=== PATIENT | female | born 1995 | race Hispanic/Latino ===

== ENCOUNTER 2019-01-05 20:08 | Inpatient (IN) ==
[2019-01-05 20:56] LABS: BASO# 0.02 X1000 (0.0-0.2); BASO% 0.2 % (0.0-0.8); EOS# 0.03 X1000 (0.0-0.7); EOS% 0.3 % (0.0-10.0); HEMATOCRIT 31.2 % (37.0-47.0); HEMOGLOBIN 9.4 g/dL (12.0-16.0); IMM GRAN# 0.03 X1000 (0.0-0.04); IMM GRAN% 0.3 % (0.0-0.5); LYMPH# 1.09 X1000 (1.2-3.4); LYMPH% 12.4 % (20.5-51.1); MCH 22.6 PG (27-31); MCHC 30.1 g/dL (33-37); MONO# 0.21 X1000 (0.11-0.59); MONO% 2.4 % (1.7-9.3); MPV 10.5 FL (7.4-10.4); NEUT# 7.43 X1000 (1.4-6.5); NEUT% 84.4 % (42.2-75.2); PLT 300 X1000 (130-400); RBC 4.16 XMIL (4.2-5.4); WBC 8.81 X1000 (4.8-10.8)
--- NOTE | 2019-01-05 21:02 | PROVIDER DOCUMENTATION ---
This chart was entered by Aisha Lyman Scribe, acting as scribe for Jass Reyes MD. HPI-Female /OB/Breast <Deedee Huff - Last Filed: 01/05/19 23:45> - General Source: reports: patient - History of Present Illness-Female /OB Does patient report she is ?: Yes Location of complaint: reports: RLQ, LLQ, periumbilical, suprapubic Quality of Pain: reports: cramping Severity in ED: reports: moderate Onset/Duration: reports: this morning Timing: reports: still present, intermittent Context/Activities at Onset: reports: light activity Vaginal Symptoms: reports: abnormal bleeding Vaginal Bleeding Amount: Spotting Urinary Symptoms: reports: no symptoms Related Symptoms: reports: pelvic pain, vaginal bleeding Modifying Factors: worse with: movement, palpation Associated Symptoms: reports: nausea Similar Symptoms Previously?: No Recently seen or treated by another doctor?: No - LMP/ History Menstrual Status: currently LMP: 12/19/18 : 1 Para: 0 : 0 Prior Delivery: N/A HCG confirmation: home preg test Care: none <Jass Reyes - Last Filed: 01/06/19 07:30> - General Chief Complaint: [employer] Related Stated Complaint: , PAIN AND BLEEDING Time Seen by Provider: 01/05/19 20:44 Allergies/Adverse Reactions: Patient Allergies Allergy/AdvReac Type Severity Reaction Status Date / Time No Known Allergies Allergy Verified 01/05/19 20:47 Home Medications: Home Medication List Medication Instructions Recorded Confirmed Last Taken Type NK [No Home Medications] 01/05/19 01/05/19 Unknown History - History of Present Illness-Female /OB Nature of Presenting Problem: 23yof presents to ED cc abdominal cramping, vaginal spotting w/clots SOB and nausea since this morning that is getting worse. Pt reports she is ,G-1, based on a home test taken 3 days ago and with LMP 12/19/18. Pt reports she has not seen an OB yet. Pt denies F/CP/V/D/dysuria. (Jass Reyes) Review of Systems - Adult - REVIEW OF SYSTEMS - ADULT Constitutional: reports: see HPI. denies: chills, fever, fatique Eyes: reports: no symptoms reported Ears, Nose, Mouth & Throat: reports: no symptoms reported Cardiovascular: reports: see HPI. denies: chest pain, palpitations Respiratory: reports: see HPI, shortness of breath. denies: wheezing Gastrointestinal: reports: see HPI, abdominal pain, nausea. denies: diarrhea, vomiting Genitourinary: reports: see HPI, other (vaginal spotting w/clots). denies: dysuria, frequency Musculoskeletal: reports: no symptoms reported Integumentary: reports: no symptoms reported Neurological: reports: no symptoms reported Psychiatric: reports: no symptoms reported Endocrine: reports: no symptoms reported Hematologic/Lymphatic: reports: no symptoms reported Allergic/Immunologic: reports: no symptoms reported All Other Systems: Reviewed and Negative <Jass Reyes - Last Filed: 01/06/19 07:30> Past History - Adult - PAST MEDICAL HISTORY-ADULT Review of Records: reports: Old Records Reviewed, Nursing Assessment Review, Medications Reviewed, Social history reviewed & non-contributory. Major Childhood Illnesses: reports: denies history Cardiovascular: reports: denies history Respiratory: reports: denies history Gastrointestinal: reports: denies history Obstetrical/Gynecological: reports: denies history Genitourinary: reports: denies history Musculoskeletal: reports: denies history Neurological: reports: denies history Psychiatric: reports: other (Panic attacks) Endocrine/Immune: reports: denies history Other Conditions: reports: denies history - IMMUNIZATION STATUS Childhood Immunizations: See Nurse Assessment Flu Vaccine: See Nurse Assessment - FAMILY HISTORY Family History: reviewed, not pertinent - SOCIAL HISTORY Smoking: denies <Jass Reyes - Last Filed: 01/06/19 07:30> Physical Exam-General - PHYSICAL EXAM-ADULT Initial Vital Signs Reviewed: Yes - CONSTITUTIONAL General Appearance: appears well, alert, mild distress. negative: anxious, combative - EYES Eyes: PERRL/EOMI, pink conjunctivae. negative: photophobia - HEAD, EARS, NOSE, MOUTH & THROAT HENMT: normocephalic/atraumatic, moist mucous membranes. negative: angioedema - RESPIRATORY Respiratory: chest non-tender, lungs clear, normal breath sounds. negative: rhonchi, stridor, wheezing - CARDIOVASCULAR Cardiovascular: normal peripheral pulses, regular rate, rhythm, no edema. negative: bradycardia, tachycardia - GASTROINTESTINAL (ABDOMEN) Abdominal Exam: normal bowel sounds, soft, distended, tenderness (generalized especially both upper quadrants and suprapubic). negative: guarding, rebound - GENITOURINARY Female Genitalia/Pelvic Exam: other (sterile glove exam 2214: fully dilated cervix with head engaged, OB sound effects person Dr. Valencia notified, delivered viable male infant at 2246, Apgars of 8/9, oropharynx and nose suctioned, Dr. Valencia arrived at 2245, and assumed care of patient at 2248.) - MUSCULOSKELETAL Back Exam: normal inspection, no CVA tenderness, no vertebral tenderness Extremity: normal range of motion, normal inspection, pelvis stable. negative: deformity - SKIN Integumentary: normal color. negative: diaphoresis, jaundice, rash - PSYCHIATRIC Psych/Mental Status: normal mood/affect, oriented x 3. negative: anxious, disheveled <Jass Reyes - Last Filed: 01/06/19 07:30> Progress - PLAN OF CARE/RESULTS Result Diagrams: 01/05/19 20:41 01/05/19 20:41 <Deedee Huff - Last Filed: 01/05/19 23:45> - PLAN OF CARE/RESULTS Result Diagrams: 01/05/19 20:41 01/06/19 01:19 - CONSULTS/PCP/HOSPITALIST Notification #1 *Consult/PCP/Hospitalist*: Dr. Valencia Time Discussed: 22:25 <Jass Reyes - Last Filed: 01/06/19 07:30> - PLAN OF CARE/RESULTS Progress/Plan/Lab Results: Laboratory Results - last 24 hr 01/05/19 01/05/19 01/05/19 20:41 20:41 20:41 WBC 8.81 RBC 4.16 L Hgb 9.4 L Hct 31.2 L MCV 75.0 L MCH 22.6 L MCHC 30.1 L RDW Std Deviation 17.0 H Plt Count 300 MPV 10.5 H Immature Gran % (Auto) 0.3 Neut % (Auto) 84.4 H Lymph % (Auto) 12.4 L [place] % (Auto) 2.4 Eos % (Auto) 0.3 Baso % (Auto) 0.2 Immature Gran # (Auto) 0.03 Neut # (Auto) 7.43 H Lymph # (Auto) 1.09 L [place] # (Auto) 0.21 Eos # (Auto) 0.03 Baso # (Auto) 0.02 Sodium Potassium Chloride Carbon Dioxide Anion Gap BUN Creatinine Estimated GFR/1.73 m2 BUN/Creatinine Ratio Glucose Calculated Osmolality Calcium Total Bilirubin AST ALT Alkaline Phosphatase Total Protein Albumin Globulin Albumin/Globulin Ratio Ser , Semi-Qnt 2876.0 RPR Blood Type O POSITIVE Direct Antiglob Test Baby's Blood Type 01/05/19 01/05/19 01/05/19 20:41 22:55 22:55 WBC RBC Hgb Hct MCV MCH MCHC RDW Std Deviation Plt Count MPV Immature Gran % (Auto) Neut % (Auto) Lymph % (Auto) [place] % (Auto) Eos % (Auto) Baso % (Auto) Immature Gran # (Auto) Neut # (Auto) Lymph # (Auto) [place] # (Auto) Eos # (Auto) Baso # (Auto) Sodium 138 Potassium 3.6 Chloride 101 Carbon Dioxide 24 L Anion Gap 13 BUN 8 Creatinine 0.8 Estimated GFR/1.73 m2 > 60 BUN/Creatinine Ratio 10 Glucose 91 Calculated Osmolality 274 Calcium 8.7 L Total Bilirubin 0.24 AST 17 ALT 7 L Alkaline Phosphatase 218 H Total Protein 7.4 Albumin 3.6 Globulin 3.8 Albumin/Globulin Ratio 0.9 Ser , Semi-Qnt RPR NON-REACTIVE Blood Type Direct Antiglob Test NEGATIVE Baby's Blood Type O POSITIVE Orders Category Date Time Status US OBS COMPLETE > 14 WKS [US] Stat Exams 01/05/19 20:31 Taken ABORH [BBK] Stat Lab 01/05/19 20:41 Completed CBC WITH ELECTRONIC DIFF [HEME] Stat Lab 01/05/19 20:41 Completed CMP [COMPREHENSIVE METABOLIC PANEL] [CHEM] Stat Lab 01/05/19 20:41 Completed CORD BLOOD [BBK] Stat Lab 01/05/19 22:55 Completed QUANT TEST Stat Lab 01/05/19 20:41 Completed RPR [SERO] Stat Lab 01/05/19 22:55 Completed Oxytocin [Pitocin] Med 01/05/19 22:51 Active 10 unit IM DIRECTED Oxytocin [Pitocin] Med 01/05/19 22:45 Discontinued 20 unit IM DIRECTED ONE Departure <Deedee Huff - Last Filed: 01/05/19 23:45> - Departure Date of Disposition Decision: 01/06/19 Time of Disposition Decision: 00:40 Certified Medical Emergency: Emergent - Critical Care Note This patient required my direct & personal management of CC.: No <Jass Reyes - Last Filed: 01/06/19 07:30> - Departure DIAGNOSIS: Pain during labor Disposition: ADMITTED INPATIENT 09 Condition: Stable Attestation - Physician/ JOHNNY Attestation Patient care was provided by Advanced Practice Provider:: No The physician spent face to face time with patient:: Yes Advanced Practice Provider documentation review:: Supervising physician onsite and consulted in the evaluation and care of this patient. The physician did have a face to face encounter with the patient. <Jass Reyes - Last Filed: 01/06/19 07:30> Note <Deedee Huff - Last Filed: 01/05/19 23:45> performed delivery with Dr. Reyes. (Deedee Huff) This chart was documented by the indicated scribe, (Aisha Lyman Scribe) and accurately reflects the services I performed and decisions made by me, Jass Reyes MD, as attested by the provider's signature.
[2019-01-05 21:23] LABS: AGAP 13; ALB/GLOB RATIO 0.9; ALBUMIN 3.6 g/dL (3.5-5.0); ALKALINE PHOSPHATASE 218 U/L (32-104); BUN 8 mg/dL (8-22); CALCIUM 8.7 mg/dL (8.8-10.2); CHLORIDE 101 mmol/L (98-107); COSMO 274; CREATININE 0.8 mg/dL (0.5-0.9); ESTIMATED GFR > 60; GLUCOSE 91 mg/dL (70-104); GOT 17 U/L (10-30); GPT 7 U/L (10-36); POTASSIUM 3.6 mmol/L (3.5-5.1); SODIUM 138 mmol/L (136-145); TCO2 24 mmol/L (25-35); TOTAL BILIRUBIN 0.24 mg/dL (0.20-1.00); TOTAL PROTEIN 7.4 g/dL (6.3-8.3)
[2019-01-05] MEDS ORDERED: PITOCIN IM ONE (22:45)
[2019-01-05] MEDS ORDERED: PITOCIN IM SCH (22:51)
--- NOTE | 2019-01-05 23:51 | HISTORY AND PHYSICAL ---
CHIEF COMPLAINT: Abdominal pain. HISTORY OF PRESENT ILLNESS: A 23-year-old, G1, at approximately 36 weeks, presented to the emergency room with a complaint of regular abdominal pain and vaginal bleeding. The patient did not know she was until approximately two weeks ago. Obstetric ultrasound on admission dated her at approximately 36 weeks. The ER physician examined the patient and noted her to be 8 cm dilated, and she subsequently delivered a viable male infant in the emergency department. She has had no care this . OBSTETRIC HISTORY: 1 with no care. GYNECOLOGIC HISTORY: She states her last Pap smear was in 2018, and that was normal. She denies any history of abnormal Pap smears. She denies any history of sexually transmitted infections. She has had irregular bleeding over the past six months, which she attributed to her control pills. She discontinued the control pills a few months ago due to mood side effects. PAST MEDICAL HISTORY: Denies. MEDICATIONS: Keke-Rhodelia p.r.n. heartburn. ALLERGIES: No known drug allergies. SURGICAL HISTORY: [place] teeth removed. SOCIAL HISTORY: She denies tobacco, alcohol, or drug use. FAMILY HISTORY: Mother with anemia. VITAL SIGNS: Temperature 97.9 degrees, heart rate 84, blood pressure 117/79, respiratory rate 15, oxygen saturation 100% on room air. LABORATORY DATA: White blood cell count 8.8, hemoglobin 9.4, hematocrit 31.2, platelets 300,000. Blood type O positive. PHYSICAL EXAMINATION: GENERAL: Alert, in mild distress secondary to pain. HEART: Regular rate and rhythm. LUNGS: Clear to auscultation bilaterally. ABDOMEN: Soft, gravid, tender to palpation. CERVICAL EXAM: Per ER physician, 8 cm dilated prior to delivery. EXTREMITIES: No clubbing, cyanosis, or edema. ASSESSMENT AND PLAN: A 23-year-old, 1, at approximately 36 weeks gestation, status post spontaneous vaginal delivery of infant and placenta with no care. 1. Hemodynamically stable. Normal lochia. 2. Will transfer patient to [facility] for and infant care. 3. Will obtain labs. 4. Cord gases obtained at delivery, cord blood also obtained at delivery. 5. Social Service consult due to no care.
--- NOTE | 2019-01-06 00:01 | OPERATIVE NOTE ---
PROCEDURE DATE: 01/05/2019 DATE OF DELIVERY: 01/05/2019. DELIVERY NOTE: Patient is a 23-year-old, G1, at approximately 36 weeks gestation with no care, who presented to the emergency room complaining of regular abdominal pain. Cervical exam per ER physician was 8 cm dilated. Approximately 10 minutes later, she delivered a viable vigorous male with Apgars 8/9, weight of 6 pounds 1 ounce. Labor was spontaneous and started around 11 p.m. today. delivered in occiput anterior position with maternal pushing efforts. Head, shoulders, and body delivered without difficulty. The cord was clamped and cut, and cord gases and cord blood were obtained. The placenta delivered spontaneously and intact with a 3-vessel cord. Placenta will be sent to Pathology. A small right periurethral laceration was noted, but was hemostatic and did not require repair. She received 10 units of IM Pitocin after delivery of the placenta and bleeding was stable. ANESTHESIA: None. ESTIMATED BLOOD LOSS: 200 mL. DISPOSITION: Pediatric nurse in attendance. Mother stable. Will transfer to [facility] for care and care. MTDD
[2019-01-06] MEDS ORDERED: PERI MEDS (DERMOPLAST/NUPERCAINAL/TUCKS) MISC PRN (00:19)
[2019-01-06] MEDS ORDERED: ATARAX PO PRN (00:19)
[2019-01-06] MEDS ORDERED: HYDROXYZINE IM PRN (00:19)
[2019-01-06] MEDS ORDERED: PERCOCET-5 PO PRN (00:19)
[2019-01-06] MEDS ORDERED: BENADRYL IV PRN (00:19)
[2019-01-06] MEDS ORDERED: AMBIEN PO PRN (00:19)
[2019-01-06] MEDS ORDERED: BOOSTRIX VACCINE IM ONE (00:19)
[2019-01-06] MEDS ORDERED: M-M-R II VACCINE SUBQ ONE (00:19)
[2019-01-06] MEDS ORDERED: CYTOTEC PO PRN (00:19)
[2019-01-06] MEDS ORDERED: BENADRYL PO PRN (00:19)
[2019-01-06] MEDS ORDERED: PITOCIN 20 UNITS/NS 20 UNITS/1,000 ML IV.SOLN IV SCH (00:30)
[2019-01-06] MEDS: MOTRIN PO PRN ×3 (01:13→18:15)
[2019-01-06 02:25] LABS: RAPID HIV PRESUMPTIVE NEGATIVE; RPR NON-REACTIVE (NONREACTIVE)
[2019-01-06 07:09] LABS: UR AMPHETAMINES QUAL NONE DETECTED (NONE DETECT); UR BARBITUATES QUAL NONE DETECTED (NONE DETECT); UR BENZODIAZEPIN QUAL NONE DETECTED (NONE DETECT); UR CANNABINOIDS QUAL NONE DETECTED (NONE DETECT); UR COCAINE QUAL NONE DETECTED (NONE DETECT); UR METHADONE QUAL NONE DETECTED (NONE DETECT); UR METHAMPHETAMINE QUAL NONE DETECTED (NONE DETECT); UR OPIATES QUAL NONE DETECTED (NONE DETECT); UR OXYCODONE QUAL NONE DETECTED (NONE DETECT); UR PCP QUAL NONE DETECTED (NONE DETECT); UR PROPOXYPHENE QUAL NONE DETECTED (NONE DETECT); UR TCA QUAL NONE DETECTED (NONE DETECT)
--- NOTE | 2019-01-06 07:50 | Diag Imaging Result Doc PS360 ---
EXAM: US OBS COMPLETE > 14 WKS INDICATION: vaginal bleeding TECHNIQUE: COMPARISON: None. FINDINGS: The study is somewhat limited due to advanced gestational age and the patient being in active labor. There is a single viable intrauterine gestation. The fetus is in vertex position. The cervix is not well-visualized. No gross anomalies are appreciated on this limited study. EFW-6 lbs. 7 oz. +/- 20 ounces FHR-160 bpm GA by ultrasound-35 weeks 5 days +/- 18 days IMPRESSION: Single viable intrauterine gestation with no gross anomalies on this somewhat limited study. Electronically signed by Chandrakant Rendon 01/06/2019 7:47 AM
--- NOTE | 2019-01-06 07:50 | OB/GYN PROGRESS NOTE ---
Progress Note OB - . Patient Problems: Current Active Problems Problem Status Onset Pain during labor Acute OB Progress Note: Vital Signs - 24 hr 01/05/19 20:19 01/05/19 23:29 01/06/19 00:24 Temperature 97.9 F 98.6 F 98.0 F Pulse Rate 84 75 56 L Respiratory Rate 15 19 18 Blood Pressure 117/79 108/72 101/62 O2 Sat by Pulse Oximetry 100 100 99 Laboratory Results - last 24 hr 01/05/19 01/05/19 01/05/19 20:41 20:41 20:41 WBC 8.81 RBC 4.16 L Hgb 9.4 L Hct 31.2 L MCV 75.0 L MCH 22.6 L MCHC 30.1 L RDW Std Deviation 17.0 H Plt Count 300 MPV 10.5 H Immature Gran % (Auto) 0.3 Neut % (Auto) 84.4 H Lymph % (Auto) 12.4 L [place] % (Auto) 2.4 Eos % (Auto) 0.3 Baso % (Auto) 0.2 Immature Gran # (Auto) 0.03 Neut # (Auto) 7.43 H Lymph # (Auto) 1.09 L [place] # (Auto) 0.21 Eos # (Auto) 0.03 Baso # (Auto) 0.02 Sodium Potassium Chloride Carbon Dioxide Anion Gap BUN Creatinine Estimated GFR/1.73 m2 BUN/Creatinine Ratio Glucose Calculated Osmolality Calcium Total Bilirubin AST ALT Alkaline Phosphatase Total Protein Albumin Globulin Albumin/Globulin Ratio Ser , Semi-Qnt 2876.0 Urine Opiates Screen Ur Oxycodone Screen Urine Methadone Screen U Propoxyphene Qual Ur Barbituates Screen Ur Tricyclics Screen Ur Phencyclidine Scrn Ur Amphetamines Screen U Methamphetamines Scrn U Benzodiazepines Scrn Urine Cocaine Screen U Cannabinoids Screen RPR HIV 1&2 Antibody Rapid Blood Type O POSITIVE Direct Antiglob Test Baby's Blood Type 01/05/19 01/05/19 01/05/19 20:41 22:55 22:55 WBC RBC Hgb Hct MCV MCH MCHC RDW Std Deviation Plt Count MPV Immature Gran % (Auto) Neut % (Auto) Lymph % (Auto) [place] % (Auto) Eos % (Auto) Baso % (Auto) Immature Gran # (Auto) Neut # (Auto) Lymph # (Auto) [place] # (Auto) Eos # (Auto) Baso # (Auto) Sodium 138 Potassium 3.6 Chloride 101 Carbon Dioxide 24 L Anion Gap 13 BUN 8 Creatinine 0.8 Estimated GFR/1.73 m2 > 60 BUN/Creatinine Ratio 10 Glucose 91 Calculated Osmolality 274 Calcium 8.7 L Total Bilirubin 0.24 AST 17 ALT 7 L Alkaline Phosphatase 218 H Total Protein 7.4 Albumin 3.6 Globulin 3.8 Albumin/Globulin Ratio 0.9 Ser , Semi-Qnt Urine Opiates Screen Ur Oxycodone Screen Urine Methadone Screen U Propoxyphene Qual Ur Barbituates Screen Ur Tricyclics Screen Ur Phencyclidine Scrn Ur Amphetamines Screen U Methamphetamines Scrn U Benzodiazepines Scrn Urine Cocaine Screen U Cannabinoids Screen RPR NON-REACTIVE HIV 1&2 Antibody Rapid Blood Type Direct Antiglob Test NEGATIVE Baby's Blood Type O POSITIVE 01/06/19 01/06/19 01/06/19 01:19 01:19 06:10 WBC RBC Hgb Hct MCV MCH MCHC RDW Std Deviation Plt Count MPV Immature Gran % (Auto) Neut % (Auto) Lymph % (Auto) [place] % (Auto) Eos % (Auto) Baso % (Auto) Immature Gran # (Auto) Neut # (Auto) Lymph # (Auto) [place] # (Auto) Eos # (Auto) Baso # (Auto) Sodium Potassium Chloride Carbon Dioxide Anion Gap BUN Creatinine Estimated GFR/1.73 m2 BUN/Creatinine Ratio Glucose 136 H Calculated Osmolality Calcium Total Bilirubin AST ALT Alkaline Phosphatase Total Protein Albumin Globulin Albumin/Globulin Ratio Ser , Semi-Qnt Urine Opiates Screen NONE DETECTED Ur Oxycodone Screen NONE DETECTED Urine Methadone Screen NONE DETECTED U Propoxyphene Qual NONE DETECTED Ur Barbituates Screen NONE DETECTED Ur Tricyclics Screen NONE DETECTED Ur Phencyclidine Scrn NONE DETECTED Ur Amphetamines Screen NONE DETECTED U Methamphetamines Scrn NONE DETECTED U Benzodiazepines Scrn NONE DETECTED Urine Cocaine Screen NONE DETECTED U Cannabinoids Screen NONE DETECTED RPR NON-REACTIVE HIV 1&2 Antibody Rapid PRESUMPTIVE NEGATIVE Blood Type Direct Antiglob Test Baby's Blood Type ppd1 no complaints vssaf s/nt -cce bottle hgb P ambulating, davis reg, voiding home in am
[2019-01-06 08:21] LABS: BASO# 0.01 X1000 (0.0-0.2); BASO% 0.1 % (0.0-0.8); EOS# 0.01 X1000 (0.0-0.7); EOS% 0.1 % (0.0-10.0); HEMATOCRIT 25.4 % (37.0-47.0); HEMOGLOBIN 7.7 g/dL (12.0-16.0); IMM GRAN# 0.02 X1000 (0.0-0.04); IMM GRAN% 0.2 % (0.0-0.5); LYMPH# 1.58 X1000 (1.2-3.4); LYMPH% 12.7 % (20.5-51.1); MCH 22.6 PG (27-31); MCHC 30.3 g/dL (33-37); MCV 74.7 FL (81-99); MONO# 0.71 X1000 (0.11-0.59); MONO% 5.7 % (1.7-9.3); MPV 10.2 FL (7.4-10.4); NEUT# 10.13 X1000 (1.4-6.5); NEUT% 81.2 % (42.2-75.2); PLT 238 X1000 (130-400); RDW 16.9 % (11.5-14.5); WBC 12.46 X1000 (4.8-10.8)
[2019-01-06 09:45] LABS: RUBELLA SCREEN IMMUNE (IMMUNE)
[2019-01-06 09:49] LABS: BANDS 1 % (0-1); LYMPHS 12 % (21-51); MONO 5 % (1-9); SEGS 82 % (42-75)
[2019-01-06 17:43] LABS: HIV ANTIBODY SCREEN SEE COMMENTS
[2019-01-06] MEDS ORDERED: PERICOLACE PO SCH (21:00)
[2019-01-07] MEDS: MOTRIN PO PRN (07:46)
[2019-01-07 07:54] VITALS: BP 110/57
[2019-01-07 08:21] LABS: HEPATITIS B SURFACE ANTIGEN SEE COMMENTS
--- NOTE | 2019-01-07 12:14 | OB/GYN PROGRESS NOTE ---
Progress Note OB - . Patient Problems: Current Active Problems Problem Status Onset Pain during labor Acute OB Progress Note: Vital Signs - 24 hr 01/06/19 15:55 01/06/19 20:09 01/07/19 07:49 Temperature 98.3 F 98.0 F 97.8 F Pulse Rate 107 H 69 73 Respiratory Rate 18 18 18 Blood Pressure 117/82 104/71 110/57 O2 Sat by Pulse Oximetry 100 100 Laboratory Results - last 24 hr 01/06/19 01/06/19 01:19 02:25 Hep Bs Antigen SEE COMMENTS HIV 1&2 Antibody Screen SEE COMMENTS S. Patient resting in bed, social public address servicer present to discuss adoption. She states she is doing well and has no complaints. She is ambulating well, tolerating a regular diet. She is urinating well Baby is bottle feeding and being given up for adoption. She is coping well with everything in her life. We discussed control options. She would like the Nexplanon and states she will go to her follow up visits and obtain control there. O. Vitals WNL HEENT: WNL Chest: CTAB Heart: RRR Abdomen: Soft, uterus well below the umbilicus Ext: NTTP, No edema A/P: 23yo s/p in the ED. Patient doing well. Unplanned with adoption planned. Patient coping well with plans for Nexplanon at her visit. Follow up planned with local OB. Discharge home today.
[2019-01-07] MEDS ORDERED: FLU VACCINE IM ONE (12:45)
--- NOTE | 2019-01-07 13:28 | DISCHARGE SUMMARY ---
ADMISSION DATE: 01/06/2019 DISCHARGE DATE: 01/07/2019 PRIMARY DIAGNOSIS: Ms. Kline is a 23-year-old G1, now P1, status post delivery of live-born male at 36 weeks. SECONDARY DIAGNOSIS: Unplanned with no care. PROCEDURE PERFORMED: Patient arrived to the ER on January 05 and delivered spontaneously in the ER with a male weighing 6 pounds 1 ounce with Apgars of 8 and 9. HOSPITAL COURSE: The patient was admitted after delivery in the ER. She did well , was ambulating well and tolerating regular diet, urinating well, had light lochia. She decided to give her baby up for adoption, has seen [employer] Representative and Adoptive Services and performed all the paperwork. She is doing well and considering the social situation, states that she is coping well with everything. DISCHARGE MEDICINES: On the med rec. discharge form. DIET: Regular. ACTIVITY: Light. INSTRUCTIONS: The patient has been told to not exercise and have pelvic rest and place nothing in the vagina for 6 weeks. She has been told to go to the stadium manager at 1 to 2 weeks and again in 6 weeks for follow-up. Discussed contraceptive choices and she currently desires the Nexplanon. She can receive this at the stadium manager or health department, which she is aware. She is also aware that she should see stadium manager for follow-up with any issues with depression, baby blues or thoughts of harming herself. She will be discharged to home. She wishes to keep the and delivery and adoption quiet from all family and friends as no one is aware that she is here. cc: DO ROSSY Casper
== END 2019-01-07 13:15 | disposition home or self-care (01) | DRG 807 ==
LOC: ED 20:08 → P.LD 01-06 00:05
PROVIDERS: ADMIT Student in an Organized Health Care Education/Training Program; ATTEND Student in an Organized Health Care Education/Training Program